=== PATIENT | female | born 1980 | race Two or more races ===

== ENCOUNTER 2023-03-14 07:09 | Day surgery (SDC) | payer BC ==
[2023-03-12 09:52] LABS: Urine Epithelial Cast None Seen /hpf (<5)
[2023-03-12 10:23] LABS: Urine Bacteria FEW /hpf (None Seen); Urine Blood Negative /uL (Negative); Urine Clarity HAZY (Clear); Urine Color Yellow (Yellow); Urine Mucus FEW (None Seen); Urine Protein, UAD TRACE (Negative); Urine Specific Gravity 1.031 (1.001-1.035); Urine Urobilinogen Normal (Negative); Urine WBC 4 /hpf (0 - 5); Urine pH 5.5 (5.0-8.0)
[2023-03-12 10:29] LABS: Basophils # (auto) 0 10 ^3/uL (0-0.2); Basophils % (auto) 0.4 % (0.0-2.0); Eosinophils # (auto) 0.8 10 ^3/uL (0-0.8); Eosinophils % (auto) 8.2 % (0.0-7.0); Hematocrit 39.5 % (36.0-46.0); Hemoglobin 13.3 g/dL (12.2-16.2); Lymphocytes # (auto) 2.2 10 ^3/uL (0.4-5.4); Lymphocytes % (auto) 22.8 % (10.0-50.0); Mean Corpuscular Hemoglobin 30.3 pg (28.0-32.0); Mean Corpuscular Hgb Conc. 33.6 g/dL (32.0-36.0); Monocytes # (auto) 0.5 10 ^3/uL (0-1.3); Monocytes % (auto) 5.4 % (0.0-12.0); Neutrophils % (auto) 63.2 % (37.0-80.0); Red Blood Cells 4.39 10^6/uL (4.0-5.20); Red Cell Distribution Width 14.2 % (11.8-14.3); White Blood Cell 9.5 10^3/uL (4.4-10.8)
[2023-03-12 10:32] LABS: INR 0.99 (0.9-1.15); Partial Thromboplastin Time 29.3 SEC (24.5-34.5); Prothrombin Time 10.4 sec (9.3-11.8)
[2023-03-12 10:44] LABS: Alanine Aminotransferase 24 U/L (7-40); Alkaline Phosphatase 117 U/L (46-116); Anion Gap 7 (5-15); Aspartate Aminotransferase 22 U/L (13-40); BUN/Creatinine Ratio 20.8 (10.0-20.0); Blood Urea Nitrogen 16 mg/dL (9-23); Calcium 9.1 mg/dL (8.5-10.1); Carbon Dioxide 24 mmol/L (20-30); Chloride 110 mmol/L (98-107); Glucose 82 mg/dL (74-106); Potassium 4.5 mmol/L (3.5-5.1); Sodium 141 mmol/L (136-145)
[2023-03-12 10:45] LABS: Albumin 4.5 g/dL (3.2-4.8)
[2023-03-12 10:46] LABS: Bilirubin, Total 0.3 mg/dL (0.2-1.0); Total Protein 7.8 g/dL (5.7-8.2)
[~2023-03-14] VITALS: Ht 165.1 cm; Wt 101.2 kg
[~2023-03-14 07:09] MED LIST: IBUP-1453 PO; NAPR220C PO
[2023-03-14] MEDS ORDERED: ceFAZolin 2 GM/D5W100ml 100 ML IV ONE (07:11)
[2023-03-14] MEDS ORDERED: KETAMINE 50mg/ML 1ml syringe ONE (08:34)
[2023-03-14] MEDS ORDERED: ONDANSETRON HCL 4 MG/2 ML VIAL ONE (08:36)
[2023-03-14] MEDS ORDERED: KETOROLAC TROMETH 30 MG/ML 1ML VIAL ONE (08:36)
[2023-03-14] MEDS ORDERED: DexAMETHasone SOD PHOS 10MG/1ML VIAL INJ ONE (08:36)
[2023-03-14] MEDS ORDERED: LIDOCAINE 1% INJ PF 5ML AMP ONE (08:36)
[2023-03-14] MEDS ORDERED: GLYCOPYRROLATE 0.2 MG/ML 1ML VIAL ONE (08:36)
[2023-03-14] MEDS ORDERED: PROPOFOL 10 MG/ML 20 ML IV ONE ×2 (08:36→09:02)
[2023-03-14] MEDS ORDERED: fentaNYL CITRATE 100 MCG/2 ML VL ONE (09:09)
[2023-03-14] MEDS ORDERED: ONDANSETRON HCL 4 MG/2 ML VIAL IV PRN ×2 (09:30→09:45)
[2023-03-14] MEDS ORDERED: LACTATED RINGER'S 1,000 ML IV SCH (09:30)
[2023-03-14] MEDS ORDERED: ZOFR4T PO (09:32)
[2023-03-14 09:34] VITALS: TEMP 97.6
[2023-03-14] MEDS ORDERED: ePHEDrine SULFATE 50 MG/ML AMP IV PRN (09:45)
[2023-03-14] MEDS ORDERED: FLUMAZENIL 0.1 MG/ML INJ 10ML MDV IV PRN (09:45)
[2023-03-14] MEDS ORDERED: LABETALOL HCL 5 MG/ML 4ML SYRINGE IV PRN (09:45)
[2023-03-14] MEDS ORDERED: NALOXONE HCL 0.4 MG/ML VIAL IV PRN (09:45)
[2023-03-14] MEDS ORDERED: fentaNYL CITRATE 100 MCG/2 ML VL IV PRN (09:45)
[2023-03-14] MEDS ORDERED: HYDROmorphone HCL 2 MG/ML VL/or syr IV PRN (09:45)
[2023-03-14] MEDS ORDERED: hydrALAZINE HCL 20 MG/ML VL IV PRN (09:45)
[2023-03-14] MEDS ORDERED: oxyCODONE HCL 5MG TAB PO PRN (09:45)
[2023-03-14 10:30] VITALS: BP 127/71; PULSE 63; RESP 19; O2SAT 96
== END 2023-03-14 10:45 | disposition home or self-care (01) ==
LOC: SUR 07:09
PROVIDERS: ATTEND Obstetrics & Gynecology
DX: Z30.432 Encounter for removal of intrauterine contraceptive device (principal); Z79.1 Long term (current) use of non-steroidal anti-inflammatories (NSAID); Z98.890 Other specified postprocedural states; Z90.49 Acquired absence of other specified parts of digestive tract
CPT/HCPCS: 36415; 58301; 58558; 80053; 81001; 84702; 85025; 85610; 85730; 86850; 86900; 86901; 88300; J1100; J1885; J2405; J2704